=== PATIENT | male | born 2000 | race Caucasian/White ===

== ENCOUNTER → 2018-09-21 15:58 | Outpatient (CLI) | payer BC, SELFPAY ==
--- NOTE | 2018-09-20 14:19 | SEP_PTH ---
PATIENT: JANIE SOUSA LOC: [facility] U#:[id number] AGE/SX: 25/M ROOM: RE09/21/[address]: Dr. Lukasz Abreu MD : 2000 BED: DIS: SPEC #: [id number] RECD: 09/21/18 15:37 STATUS: MARTHA REAnayeli #: [id number] SAILAJA: 09/20/18 14:[address]: Lukasz Abreu DEPT: SURGICAL PATHOLOGY RECD BY: Dipak Leung ENTERED: 09/22/18 11:24 SP TYPE: SEPTUM OTHR DR: LUL Tissues: Nasal septum, NOS Procedures: Decalcification bone/plaque Surgery Specimen Level III HEADER OPERATION: Septoplasty and resection of inferior turbinates PRE-OP DIAGNOSIS: Nasal airway obstruction, deviated nasal septum, hypertrophy of inferior turbinates TISSUE SUBMITTED: Septal cartilage MICROSCOPIC DIAGNOSIS Nasal septal cartilage and bone, septoplasty: Fragments of hyaline cartilage and bone with reactive change (clinically deviated septum). AM:mita 09/26/18 MICROSCOPIC DESCRIPTION Slides are reviewed. GROSS DESCRIPTION Received is one container labeled with the patient's name and not further designated. The specimen consists of multiple fragments of cartilage and bone that in aggregate measure 2.5 x 2.5 x 0.2 cm. The entire specimen is submitted in one cassette after decalcification. / SJ:mita 09/22/18 TC:5 CPT: 62714, 93650
--- OUTSIDE RECORDS SUMMARY | 2018-11-07 21:51 | XMS RPT_ITS ---
:2000 Author Organization [facility] Care Team Providers Name Role Phone Lukasz Abreu Attending Unavailable Lukasz Abreu Referring Unavailable PROBLEMS PROBLEMS No Problem Records FoundPROCEDURES PROCEDURES No Procedure Records FoundRESULTS RESULTS SEPTUM Observed: 09/20/2018 Status: F Source: [place] 2:19 PM [facility] REPOSITORY Patient: JANIE SOUSA : 2000 (18/M) Acct Num: [id number] Phys: Lukasz Abreu MD Unit Num: [id number] Loc: [facility] Specimen: [id number] Received: 09/21/181536 Spec Type: SEPTUM TISSUES 1 TISSUES: Nasal septum, NOS GROSS DESCRIPTION Received is one container labeled with the patient's name and not further designated. The specimen consists of multiple fragments of cartilage and bone that in aggregate measure 2.5 x 2.5 x 0.2 cm. The entire specimen is submitted in one cassette after decalcification. / SJ:mita 09/22/18 TC:5 CPT: 16748, 15998 HEADER OPERATION: Septoplasty and resection of inferior turbinates PRE-OP DIAGNOSIS: Nasal airway obstruction, deviated nasal septum, hypertrophy of inferior turbinates TISSUE SUBMITTED: Septal cartilage MICROSCOPIC DESCRIPTION Slides are reviewed. MICROSCOPIC DIAGNOSIS Nasal septal cartilage and bone, septoplasty: Fragments of hyaline cartilage and bone with reactive change (clinically deviated septum). AM:mita 09/26/18 Signed Lukasz Palmer, DO 09/26/18 <signature on file> Performed By: #### PSEP #### [facility] [address] [place], [address] ALLERGIES ALLERGIES No Allergies Records FoundENCOUNTERS ENCOUNTERS ADMIT/DISCHARGE ACCOUNT ADMITTING ENCOUNTER LOCATION SOURCE NUMBER CLASS 09/21/2018 [id number] Ambulatory [facility] 2 [facility] ing:LABSPEC Repository PAYERS PAYERS ENCOUNTER GUARANTOR PAYER SUBSCRIBER SOURCE 09/21/2018 TRACE P Primary [place] [address] [place] [id number] Insurance:ANTHEMPolic BUTDORFARLENE [facility] Number: [place], [place] [id number] Repository [id number]: (122) Date:[phone] () [id number], [place] [address]IP: 09/21/2018 Secondary NOT GIVENARLENE [place] Insurance:SELF PAY [facility] Number: Effective Repository Date:2018-09-21
== END ==
PROVIDERS: Referring Provider Otolaryngology Otolaryngology/Facial Plastic Surgery; Visit Provider Otolaryngology Otolaryngology/Facial Plastic Surgery
DX: J98.8 Other specified respiratory disorders (principal); J34.3 Hypertrophy of nasal turbinates; J34.2 Deviated nasal septum
CPT/HCPCS: 88304; 88311